=== PATIENT | female | born 1980 | race Caucasian/White ===

== ENCOUNTER 2019-08-08 15:07 | Emergency (ER) | payer BC, MEDICAID ==
[~2019-08-08] VITALS: Ht 167.6 cm; Wt 159.7 kg
[2019-08-08 15:12] VITALS: Ht 167.6 cm; Wt 159.7 kg
[2019-08-08 19:07] VITALS: BP 125/746
== END 2019-08-08 19:07 | disposition home or self-care (01) ==
LOC: ED 15:07
DX: G44.209 Tension-type headache, unspecified, not intractable (principal); M54.6 Pain in thoracic spine; I10 Essential (primary) hypertension; E11.9 Type 2 diabetes mellitus without complications; E78.00 Pure hypercholesterolemia, unspecified; F32.9 Major depressive disorder, single episode, unspecified; F41.9 Anxiety disorder, unspecified; Z88.8 Allergy status to other drugs, medicaments and biological substances; Z90.710 Acquired absence of both cervix and uterus; Z98.890 Other specified postprocedural states
CPT/HCPCS: J1100; J2765; J3475; J7030